=== PATIENT | male | born 1940 | race African-American/Black ===

== ENCOUNTER 2017-06-08 00:14 | Inpatient (IN) | payer MEDICARE, MEDICAID ==
[~2017-06-08] VITALS: Ht 177.8 cm; Wt 61.2 kg
[~2017-06-08 00:14] MED LIST: LEVE1000 PO
[2017-06-08] MEDS ORDERED: LEVETIRACETAM 500MG PREMIX 100 ML IV ONE (02:30)
[2017-06-08] MEDS ORDERED: LORAZEPAM 2MG/ML CPJ IV ONE ×2 (03:00)
[2017-06-08 03:27] LABS: BASOPHILS % 0.3 % (0.0-2.0); EOSINOPHILS % 1.5 % (0.0-5.0); HEMATOCRIT. 40.6 % (42.0-52.0); HEMOGLOBIN. 13.5 g/dL (14.0-18.0); LYMPHOCYTES % 33.6 % (20.0-50.0); MEAN CORPUSCULAR HEMOGLOBIN 31.3 pg (28.0-32.0); MEAN CORPUSCULAR VOLUME 93.9 fL (80.0-94.0); MEAN PLATELET VOLUME 10.8 fl (7.4-10.4); MONOCYTES % 6.7 % (2.0-8.0); NEUTROPHILS % 57.9 % (40.0-76.0); PLATELET 150 x1000/uL (130-400); RED BLOOD CELL COUNT 4.32 mill/uL (4.7-6.1)
[2017-06-08 03:41] LABS: *AMPHETAMINES SCREEN URINE NEGATIVE (NEGATIVE); *BARBITURATES SCREEN URINE NEGATIVE (NEGATIVE); *BENZODIAZEPINES SCREEN URINE PRESUMTIVE POSITIVE (NEGATIVE); *COCAINE SCREEN URINE NEGATIVE (NEGATIVE); CANNABINOID URINE SCREEN NEGATIVE (NEGATIVE); METHADONE URINE SCREEN NEGATIVE (NEGATIVE); OPIATES URINE SCREEN NEGATIVE (NEGATIVE); PHENCYCLIDINE URINE SCREEN NEGATIVE (NEGATIVE)
[2017-06-08 03:42] LABS: CARBON DIOXIDE 29 mEq/L (21-32); CHLORIDE 105 mEq/L (98-107); ETHANOL BLOOD < 10 mg/dL
[2017-06-08] MEDS ORDERED: ONDANSETRON HCL 4MG/2ML VIAL IV PRN (11:00)
[2017-06-08] MEDS ORDERED: CLONIDINE 0.1MG TABLET PO PRN (11:00)
[2017-06-08] MEDS ORDERED: MAGNESIUM/ALUMINUM HYDROXIDE/SIMETHICONE 30ML UDC PO PRN (11:00)
[2017-06-08] MEDS ORDERED: NA PHOS,M-B/NA PHOS,DI-BA ENEMA 118ML PR PRN (11:00)
[2017-06-08] MEDS ORDERED: IPRATROPIUM/ALBUTEROL 0.5-3(2.5)MG/3ML NEB INH PRN (11:00)
[2017-06-08] MEDS ORDERED: DOCUSATE SODIUM 100MG CAPSULE PO PRN (11:00)
[2017-06-08] MEDS ORDERED: KETOROLAC 15MG/ML VIAL IV PRN (11:00)
[2017-06-08] MEDS ORDERED: NITROGLYCERIN 0.4MG TABLET SL SL PRN (11:00)
[2017-06-08] MEDS ORDERED: TRAMADOL 50MG TABLET PO PRN (11:00)
[2017-06-08] MEDS ORDERED: ACETAMINOPHEN 325MG TABLET PO PRN (11:00)
[2017-06-08] MEDS ORDERED: DIPHENHYDRAMINE 50MG/ML VIAL IV PRN (11:00)
[2017-06-08] MEDS ORDERED: GUAIFENESIN 200MG/10ML SUGAR FREE UDC PO PRN (11:00)
[2017-06-08 12:09] VITALS: BP 113/62
[2017-06-08] MEDS: ENOXAPARIN 40MG/0.4ML SYR SUBCUT SCH (13:50)
[2017-06-08 16:00] VITALS: BP 124/82
[2017-06-08 16:43] LABS: CREATINE KINASE 474 IU/L (39-308); CREATINE KINASE MB FRACTION 1.8 ng/mL (0.5-3.6); TROPONIN I < 0.02 ng/mL (0.00-0.04)
[2017-06-08 20:03] VITALS: BP 122/89
[2017-06-08] MEDS: LEVETIRACETAM 500MG TABLET PO SCH (20:55)
[2017-06-08] MEDS: PHENYTOIN SODIUM EXTENDED 100MG CAPSULE PO SCH (20:56)
[2017-06-08] MEDS ORDERED: ZOLPIDEM TARTRATE 5MG TABLET PO PRN (21:00)
[2017-06-08 23:54] LABS: CREATINE KINASE 279 IU/L (39-308); CREATINE KINASE MB FRACTION 0.6 ng/mL (0.5-3.6); TROPONIN I < 0.02 ng/mL (0.00-0.04)
[2017-06-09] VITALS: BP 125/80
[2017-06-09 04:00] VITALS: BP 104/72
[2017-06-09 08:00] VITALS: BP 110/83
[2017-06-09] MEDS: PANTOPRAZOLE SODIUM 40 MG/VIAL IV SCH (08:31)
[2017-06-09] MEDS: LEVETIRACETAM 500MG TABLET PO SCH ×2 (08:31→20:22)
[2017-06-09] MEDS: ASPIRIN 325MG EC TABLET PO SCH (08:31)
[2017-06-09 12:00] VITALS: BP 110/57
[2017-06-09] MEDS: ENOXAPARIN 40MG/0.4ML SYR SUBCUT SCH (14:25)
[2017-06-09] MEDS: CLOPIDOGREL 75MG TABLET PO SCH (15:47)
[2017-06-09 16:00] VITALS: BP 100/57
[2017-06-09] MEDS ORDERED: PHENYTOIN SODIUM 700 MG in SODIUM CHLORIDE 0.9% 100 ML IV SCH (18:00)
[2017-06-09 18:17] LABS: T4 FREE 1.02 ng/dL (0.76-1.46)
[2017-06-09 18:33] LABS: FOLIC ACID (FOLATE) SERUM 18.2 ng/mL (>5.38)
[2017-06-09 20:00] VITALS: BP 109/73
[2017-06-09] MEDS: PHENYTOIN SODIUM EXTENDED 100MG CAPSULE PO SCH (20:22)
[2017-06-10] VITALS: BP 101/69
[2017-06-10] MEDS: LORAZEPAM 2MG/ML CPJ IV PRN ×3 (02:21→12:02)
[2017-06-10 04:00] VITALS: BP 94/56
[2017-06-10 07:51] VITALS: BP 98/68
[2017-06-10] MEDS: PANTOPRAZOLE SODIUM 40 MG/VIAL IV SCH (08:08)
[2017-06-10] MEDS: LEVETIRACETAM 500MG TABLET PO SCH ×2 (08:08→21:49)
[2017-06-10] MEDS: ASPIRIN 325MG EC TABLET PO SCH (08:08)
[2017-06-10] MEDS: CLOPIDOGREL 75MG TABLET PO SCH (08:08)
[2017-06-10 12:00] VITALS: BP 104/71
[2017-06-10] MEDS: ENOXAPARIN 40MG/0.4ML SYR SUBCUT SCH (12:02)
[2017-06-10 16:00] VITALS: BP 134/86
[2017-06-10 20:00] VITALS: BP 102/73
[2017-06-10] MEDS: PHENYTOIN SODIUM EXTENDED 100MG CAPSULE PO SCH (21:00)
[2017-06-10] MEDS: ATORVASTATIN CALCIUM 20MG TABLET PO SCH (21:49)
[2017-06-11] VITALS: BP 114/72
[2017-06-11 04:00] VITALS: BP 112/70
[2017-06-11 08:00] VITALS: BP 104/78
[2017-06-11] MEDS: PANTOPRAZOLE SODIUM 40 MG/VIAL IV SCH (08:14)
[2017-06-11] MEDS: CLOPIDOGREL 75MG TABLET PO SCH (08:15)
[2017-06-11] MEDS: LEVETIRACETAM 500MG TABLET PO SCH ×2 (08:15→20:51)
[2017-06-11] MEDS: ASPIRIN 325MG EC TABLET PO SCH (08:15)
[2017-06-11 11:42] VITALS: BP 102/66
[2017-06-11] MEDS: ENOXAPARIN 40MG/0.4ML SYR SUBCUT SCH (12:28)
[2017-06-11 15:43] VITALS: BP 91/67
[2017-06-11 20:00] VITALS: BP 96/66
[2017-06-11] MEDS: ATORVASTATIN CALCIUM 20MG TABLET PO SCH (20:51)
[2017-06-12] VITALS: BP 112/67
[2017-06-12 04:00] VITALS: BP 100/69
[2017-06-12 08:00] VITALS: BP 104/74
[2017-06-12] MEDS: ASPIRIN 325MG EC TABLET PO SCH (08:47)
[2017-06-12] MEDS: LEVETIRACETAM 500MG TABLET PO SCH (08:47)
[2017-06-12] MEDS: CLOPIDOGREL 75MG TABLET PO SCH (08:48)
[2017-06-12] MEDS ORDERED: FAMOTIDINE 20MG TABLET PO SCH (09:00)
[2017-06-12 09:29] VITALS: BP 104/74
[2017-06-12 11:43] VITALS: BP 103/72
[2017-06-12] MEDS: ENOXAPARIN 40MG/0.4ML SYR SUBCUT SCH (12:02)
[2017-06-12] MEDS ORDERED: PHENYTOIN SODIUM EXTENDED 100MG CAPSULE PO SCH (21:00)
== END 2017-06-12 13:00 | disposition home health service (06) | DRG 45 ==
LOC: ER 00:14 → CANRESERV 07:00 → ENRESERV 07:00 → 8WST 11:40
PROVIDERS: ADMIT Internal Medicine; ATTEND Internal Medicine
DX: I63.9 Cerebral infarction, unspecified (principal); G93.40 Encephalopathy, unspecified; M62.82 Rhabdomyolysis; G81.91 Hemiplegia, unspecified affecting right dominant side; R13.10 Dysphagia, unspecified; R47.01 Aphasia; F03.90 Unspecified dementia, unspecified severity, without behavioral disturbance, psychotic disturbance, mood disturbance, and anxiety; J98.11 Atelectasis; R47.1 Dysarthria and anarthria; G40.909 Epilepsy, unspecified, not intractable, without status epilepticus; R73.9 Hyperglycemia, unspecified; D64.9 Anemia, unspecified; R53.81 Other malaise; R26.9 Unspecified abnormalities of gait and mobility; E78.00 Pure hypercholesterolemia, unspecified; G40.901 Epilepsy, unspecified, not intractable, with status epilepticus; Z79.01 Long term (current) use of anticoagulants; Z79.02 Long term (current) use of antithrombotics/antiplatelets; Z79.82 Long term (current) use of aspirin; T42.0X5A Adverse effect of hydantoin derivatives, initial encounter; Z86.73 Personal history of transient ischemic attack (TIA), and cerebral infarction without residual deficits; Z98.41 Cataract extraction status, right eye; Z79.899 Other long term (current) drug therapy; Z91.19 Patient's noncompliance with other medical treatment and regimen; Y92.89 Other specified places as the place of occurrence of the external cause
CPT/HCPCS: 36415; 70450; 70544; 70551; 71010; 80053; 80061; 80185; 80305; 82542; 82550; 82553; 82607; 82746; 83036; 84439; 84443; 84481; 84484; 85025; 92523; 92610; 93005; 93306; 93880; 96365; 96375; 97116; 97162; 97163; 99285; C1893; C9113; G0482; J1165; J1650; J1953; J2060; J7040; J7050; A4315